=== PATIENT | male | born 1955 | race African-American/Black ===

== ENCOUNTER 2017-08-09 19:31 | Emergency (ER) | payer OTHER ==
[~2017-08-09] VITALS: Ht 193 cm; Wt 84.8 kg
[~2017-08-09 19:31] MED LIST: ASPIR 8181 MG PO; CETIRIZINE HCL10 MG PO; CIPRO500 MG PO; IBU-6600 MG PO; NASONEX0.05 MG/Ac NS; PROTONIX40 M3 PO; SUDAFED 12HR120 MG PO; VITAMIN B11000 MCG/M IM
--- NOTE | 2017-08-09 19:46 | ED CARDIAC/CP/PALPITATIONS ---
History of Present Illness General Chief Complaint: Palpitations Stated Complaint: HEART PALPITATIONS,LIGHT HEADED Source: patient Exam Limitations: no limitations Vital Signs & Intake/Output Vital Signs & Intake/Output Vital Signs Date Time Temp Pulse Resp B/P B/P Pulse O2 O2 Flow FiO2 Mean Ox Delivery Rate 08/09 2157 98.1 53 18 138/67 100 Room Air 08/09 1948 98.2 60 18 157/79 97 Room Air ED Intake and Output 08/10 0000 08/09 1200 Intake Total Output Total Balance Patient 187 lb Weight Weight Reported by Patient Measurement Method Allergies Coded Allergies: NO KNOWN ALLERGIES (09/17/15) Reconcile Medications No Known Home Medications Triage Nurses Notes Reviewed? yes Onset: Gradual Duration: day(s): Timing: recent history Quality/Severity: mild Location: central Radiation: no radiation Activities at Onset: none Prior Chest Pain/Card Workup: had afib 3 yrs ago Associated Symptoms: occasional palpitations HPI: 62 yo gentleman, h/o afib 3 years ago, presents with palpitations x 7 days. He shares that he has, on several occasions, experiences a "pounding heartbeat" or several beats of a rapid heartbeat. He never has had chest pain, dizziness, syncope. He is otherwise well. 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 Past History Travel History Traveled to [place] past 21 day No Medical History Any Pertinent Medical History? see below for history Neurological: TIA EENT: NONE Cardiovascular: AFIB, PAROXYSMAL Respiratory: NONE Gastrointestinal: NONE Hepatic: NONE Renal: kidney stones Musculoskeletal: NONE Psychiatric: NONE Endocrine: NONE Blood Disorders: NONE Cancer(s): NONE POND SUPERVISOR/Reproductive: NONE Other Medical Hx: Patient denies other medical issues Surgical History Surgical History: none Psychosocial History Who do you live with Family Services at Home Home Health Aide (none) What is your primary language [place] Family History Family History, If Any: Relation not specified for: FH: HTN (hypertension) FH: myocardial infarction Hx Contributory? No Review of Systems Review of Systems Constitutional: Reports: no symptoms. EENTM: Reports: no symptoms. Respiratory: Reports: no symptoms. Cardiovascular: Reports: no symptoms. GI: Reports: no symptoms. Genitourinary: Reports: no symptoms. Musculoskeletal: Reports: no symptoms. Skin: Reports: no symptoms. Neurological/Psychological: Reports: no symptoms. Hematologic/Endocrine: Reports: no symptoms. Immunologic/Allergic: Reports: no symptoms. All Other Systems: Reviewed and Negative Physical Exam Physical Exam General Appearance: well developed/nourished, no apparent distress Head: atraumatic, normal appearance Eyes: Bilateral: normal appearance. Ears, Nose, Throat: normal pharynx, normal ENT inspection Neck: normal inspection, supple, full range of motion Respiratory: normal breath sounds, chest non-tender, no respiratory distress, quiet respiration, lungs clear Cardiovascular: regular rate/rhythm Gastrointestinal: normal bowel sounds, soft, non-tender, no organomegaly Back: normal inspection, normal range of motion Extremities: normal inspection Neurologic/Psych: no motor/sensory deficits, awake, alert, oriented x 3 Skin: intact, normal color Core Measures ACS in differential dx? No CVA/TIA Diagnosis No Sepsis Present: No Sepsis Focused Exam Completed? No Progress Differential Diagnosis: afib, vs other. Plan of Care: Orders Procedure Date/time Status TROPONIN LEVEL 08/09 2229 Complete EKG 08/09 2029 Active D-DIMER 08/09 1945 Complete URINALYSIS 08/09 1934 Complete TSH REFLEX 08/09 1934 Complete TROPONIN LEVEL 08/09 1934 Complete MAGNESIUM 08/09 1934 Complete COMPREHENSIVE METABOLIC PANEL 08/09 1934 Complete CBC WITHOUT DIFFERENTIAL 08/09 1934 Complete EKG 08/09 1931 Active Laboratory Tests 08/09/17 2338: Urine Color YEL, Urine Clarity CLEAR, Urine pH 6.5, Ur Specific [place] 1.025, Urine Protein NEG, Urine Ketones TRACE H, Urine Nitrite NEG, Urine Bilirubin NEG, Urine Urobilinogen 1.0, Ur Leukocyte Esterase NEG, Ur Microscopic EXAM NOT REQUIRED, Urine Hemoglobin NEG, Urine Glucose NEG 08/09/17 2226: Troponin I < 0.01 08/09/171947: Anion Gap 12, Estimated GFR > 60, BUN/Creatinine Ratio 17.0, Glucose 87, Calcium 9.4, Magnesium 1.9, Total Bilirubin 0.5, AST 16 L, ALT 19 L, Alkaline Phosphatase 58, Troponin I < 0.01, Total Protein 7.9, Albumin 4.4, Globulin 3.5, Albumin/Globulin Ratio 1.3, TSH &T3 &Free T4 Intrp 1.550, D-Dimer High Sensitivty < 200, CBC w Diff NO MAN DIFF REQ, RBC 4.45 L, MCV 92.2, MCH 30.0, MCHC 32.6 L, RDW 12.6, MPV 8.4, Gran % 53.3, Lymphocytes % 33.0, Monocytes % 7.9, Eosinophils % 5.2 H, Basophils % 0.6, Absolute Granulocytes 2.8, Absolute Lymphocytes 1.8, Absolute Monocytes 0.4, Absolute Eosinophils 0.3, Absolute Basophils 0 Diagnostic Imaging: Viewed by Me: Radiology Read. Discussed w/RAD: Radiology Read. CXR Impression: no acute abnormality, no infiltrates, normal size heart, normal mediastinum, PATIENT: ISRA VENTURA PRESENT AGE: 62 PATIENT ACCOUNT NO: [id number] : 56 LOCATION: [facility] ORDERING PHYSICIAN: Prince Bowles MD SERVICE DATE: 08/09/17 EXAM TYPE: RAD - XRY- PORTABLE CHEST XRAY EXAMINATION: XR PORTABLE CHEST CLINICAL INFORMATION: Palpitation COMPARISON: 2014 TECHNIQUE: Portable frontal view of the chest was obtained. FINDINGS: No significant abnormality is noted involving the heart, lungs, mediastinum, bony thorax or soft tissues. Bilateral apical pleural capping thickening RIGHT more than LEFT unchanged. IMPRESSION: No acute infiltrates or failure. DICTATED BY: Dc Arndt MD DATE/TIME DICTATED:05/16 HELP DESK TECHNICIAN:KYRIE DATE/TIME TRANSCRIBED:08/09/172114 CONFIDENTIAL, DO NOT COPY WITHOUT APPROPRIATE AUTHORIZATION. <Electronically signed in Other Vendor System> SIGNED BY: Dc Arndt MD 08/09/172119 Initial ED EKG: sinus leatha Departure Departure Disposition: HOME OR SELF CARE Condition: Stable Clinical Impression Primary Impression: Palpitations Referrals: Patient Has No Primary Care Dr (PCP/Family) Departure Forms: Customer Survey General Discharge Information Prescriptions: Current Visit Scripts No Known Home Medications Comments 08/10/17, 0:35...pt asymptomatic in the ED, doing well, ekg/trop benign x 2... pt safe for discharge and will follow up with his feller operator dr. longo to consider a repeat holter monitor. Critical Care Note Critical Care Note Critical Care Time: non-applicable
[2017-08-09 19:57] LABS: ABSOLUTE BASOPHIL COUNT 0 /CUMM (0.0-0.2); ABSOLUTE EOSINOPHIL COUNT 0.3 /CUMM (0.0-0.7); ABSOLUTE GRANULOCYTE CT 2.8 /CUMM (1.4-6.5); ABSOLUTE LYMPH COUNT 1.8 /CUMM (1.2-3.4); ABSOLUTE MONOCYTE COUNT 0.4 /CUMM (0.10-0.60); BASOPHIL % 0.6 % (0.0-2.0); EOSINOPHIL % 5.2 % (0-5); GRANULOCYTE % 53.3 % (42.2-75.2); MEAN CORPUSCULAR HGB CONC 32.6 G/DL (33.0-37.0); MEAN CORPUSCULAR VOLUME 92.2 FL (80.0-94.0); MEAN PLATELET VOLUME 8.4 FL (7.4-10.4); PLATELET COUNT 170 /CUMM (130-400); RBC DISTRIBUTION WIDTH 12.6 % (11.5-14.5); RED BLOOD CELL CT 4.45 /CUMM (4.70-6.10); WHITE BLOOD CELL COUNT 5.3 /CUMM (4.8-10.8)
--- NOTE | 2017-08-09 21:20 | RADIOLOGY REPORT ---
EXAMINATION: XR PORTABLE CHEST CLINICAL INFORMATION: Palpitation COMPARISON: 2014 TECHNIQUE: Portable frontal view of the chest was obtained. FINDINGS: No significant abnormality is noted involving the heart, lungs, mediastinum, bony thorax or soft tissues. Bilateral apical pleural capping thickening RIGHT more than LEFT unchanged. IMPRESSION: No acute infiltrates or failure.
[2017-08-09 21:58] VITALS: BP 138/67
== END 2017-08-10 00:44 ==
LOC: ERH 19:31
PROVIDERS: Physician Assistant Medical
DX: R00.2 Palpitations (principal)
CPT/HCPCS: 71045; 81003; 93005; 93010